=== PATIENT | female | born 1995 | race Caucasian/White ===

== ENCOUNTER 2022-04-09 20:19 | Emergency (ER) | payer MEDICAID ==
[~2022-04-09] VITALS: Ht 160 cm; Wt 64.0 kg
[2022-04-09 20:46] VITALS: BP 113/86
--- NOTE | 2022-04-09 20:49 | NUR ---
TO LOBBY A/W BED AMBULATORY
--- NOTE | 2022-04-09 22:13 | NUR ---
PER ELOISE MACEDO, PT CALLED x2 WITH NO ANSWER.
--- NOTE | 2022-04-09 22:42 | NUR ---
PATIENT LEFT WITHOUT BEING SEEN BY DR. SMITH. NO FURTHER CARE PROVIDED FOR PATIENT.
--- NOTE | 2022-04-09 22:42 | NUR ---
PT CALLED ON PHONE, HUNG UP WHEN ASKED IF STILL ON PREMISES
== END 2022-04-09 22:42 | disposition left against medical advice (07) ==
LOC: MED 20:19
DX: R10.30 Lower abdominal pain, unspecified (principal); Z53.21 Procedure and treatment not carried out due to patient leaving prior to being seen by health care provider